=== PATIENT | male | born 1940 | race Caucasian/White ===

== ENCOUNTER 2017-08-09 07:00 | Day surgery (SDC) | payer MEDICARE, BC ==
[~2017-08-09 07:00] MED LIST: Lactated Ringers 1,000 ML IV SCH; Lidocaine 1%/Sod Bicarbonate in NS 8.4% 1 ML Syringe PRN; Sodium Chloride 0.9% 10 ML Syringe FLUSH PRN
[2017-08-09] MEDS ORDERED: fentaNYL 100 MCG/2 ML SDV ONE (07:06)
[2017-08-09] MEDS ORDERED: Propofol 200 MG/20 ML SDV ONE ×2 (07:06→08:23)
--- NOTE | 2017-08-09 07:42 | PCM.PREANE ---
Preanesthetic Assessment - Procedure Proposed Procedure: Surveillance colonoscopy - Anesthesia/Transfusion/Family Hx Anesthesia History: Prior Anesthesia Without Reaction Other Type of Anesthesia Reaction Comment: Difficult to awaken, hx cardiac arrest with CPR 11/21. Pacer implanted after Family History of Anesthesia Reaction: No Transfusion History: No Prior Transfusion(s) - Review of Systems General: No Symptoms Pulmonary: No Symptoms Cardiovascular: Other (HTN, Pacemaker 3-4 years ago ) Gastrointestinal: Other (GERD ) Neurological: No Symptoms Other: Reports: None, Thyroid Problems, Anxiety - Physical Assessment NPO Status Date: 08/08/17 NPO Status Time: 20:30 O2 Sat by Pulse Oximetry: 94 Respiratory Rate: 16 Vital Signs: Last Vital Signs Temp 36.8 C 08/09/17 07:05 Pulse 92 08/09/17 07:05 Resp 16 08/09/17 07:05 BP 132/82 08/09/17 07:05 Pulse Ox 94 L 08/09/17 07:05 Height: 1.55 m Weight: 80.739 kg ASA Class: 3 Mental Status: Alert & Oriented x3 Airway Class: Mallampati = 2 Dentition: Reports: Normal Dentition Thyro-Mental Finger Breadths: 3 Mouth Opening Finger Breadths: 3 ROM/Head Extension: Full Lungs: Clear to Auscultation, Normal Respiratory Effort Cardiovascular: Regular Rate, Regular Rhythm - Allergies Allergies/Adverse Reactions: Allergies Allergy/AdvReac Type Severity Reaction Status Date / Time valsartan Allergy Hives Verified 08/08/17 12:56 - Blood Blood Available: No Product(s) Available: None - Anesthesia Plan Pre-Op Medication Ordered: None - Acknowledgements Anesthesia Type Planned: MAC Pt an Appropriate Candidate for the Planned Anesthesia: Yes Alternatives and Risks of Anesthesia Discussed w Pt/Guardian: Yes Pt/Guardian Understands and Agrees with Anesthesia Plan: Yes PreAnesthesia Questionnaire HEENT History: Reports: Impaired Vision Cardiovascular History: Reports: High Cholesterol, Hypertension, Pacemaker Other Cardiovascular History: Hx of Cardiac arrest with CPR approx 2 minutes, HX of 3rd degree heart block, cardiac cath Respiratory History: Reports: SOB Gastrointestinal History: Reports: Gastritis, GERD, Hiatal Hernia, Other (See Below) Other Gastrointestinal History: esophagitis, colon polyps Genitourinary History: Reports: BPH, Prostate Disorder Other Genitourinary History: BPH, HYDROCELE [employer] History: Reports: None Other Musculoskeletal History: Degenerative joint disease, knee pain Neurological History: Reports: None Psychiatric History: Reports: Anxiety Other Psychiatric History: fatigue Other Endocrine/Metabolic History: thryroidectomy, thyroid nodule Hematologic History: Reports: None Immunologic History: Reports: None Oncologic (Cancer) History: Reports: Basal Cell Carcinoma, Thyroid Other Dermatologic History: basal cell carcinoma with excision - Past Surgical History HEENT Surgical History: Reports: Cataract Surgery, Tonsillectomy Cardiovascular Surgical History: Reports: Other (See Below) Other Cardiovascular Surgeries/Procedures: pacemaker, cardiac catheterization Respiratory Surgical History: Reports: None GI Surgical History: Reports: Colonoscopy, EGD, Hernia Repair/Other Other GI Surgeries/Procedures: UMBILICAL HERNIA REPAIR Endocrine Surgical History: Reports: Thyroidectomy Other Endocrine Surgeries/Procedures: FOR HX OF CA, THYROID NODULE Neurological Surgical History: Reports: None Other Musculoskeletal Surgeries/Procedures:: RIGHT KNEE SCOPE Oncologic Surgical History: Reports: None - SUBSTANCE USE Smoking Status *Q: Former Smoker Second Hand Smoke Exposure: No Days Per Week of Alcohol Use: 0 Recreational Drug Use History: No - HOME MEDS Home Medications: Home Meds Aspirin [Halfprin] 81 mg PO DAILY 11/09/14 [History] Benazepril [Lotensin] 20 mg PO DAILY 11/09/14 [History] Calcium Carbonate 500 mg PO DAILY 11/09/14 [History] Doxazosin [Cardura] 8 mg PO DAILY 11/09/14 [History] Zolpidem [Ambien] 10 mg PO BEDTIME PRN 11/09/14 [History] Saw [place] 160 mg PO DAILY 03/22/15 [History] LORazepam [Ativan] 1 mg PO BEDTIME PRN 10/19/15 [History] Levothyroxine Sodium [Synthroid] 150 mcg PO DAILY 10/19/15 [History] Alum Hydroxide/Mag Hydroxide [Mag-Al Susp] 1 dose PO ASDIRECTED PRN 06/29/16 [ History] Esomeprazole Magnesium [Nexium] 1 tab PO DAILY 06/29/16 [History] Aspirin 81 mg PO DAILY 08/08/17 [History] Finasteride [Finasteride] 5 mg PO DAILY 08/08/17 [History] - CURRENT (IN HOUSE) MEDS Current Meds: Current Medications Lactated Ringer's (Ringers, Lactated) 1,000 mls @ 125 mls/hr IV ASDIRECTED HERMAN Stop: 08/09/17 23:00 Last Admin: 08/09/17 07:20 Dose: 125 mls/hr Lidocaine/Sodium Bicarbonate (Buffered Lidocaine 1% In Ns 8.4%) 0.25 ml .XX ONETIME PRN PRN Reason: Prior to IV Start Stop: 08/09/17 18:00 Last Admin: 08/09/17 07:20 Dose: 0.25 ml Sodium Chloride (Saline Flush) 10 ml FLUSH ASDIRECTED PRN PRN Reason: Keep Vein Open Stop: 08/09/17 18:00 Discontinued Medications Fentanyl (Sublimaze) Confirm Administered Dose 100 mcg .ROUTE .STK-MED ONE Stop: 08/09/17 07:07 Propofol (Diprivan 20 Ml) Confirm Administered Dose 200 mg .ROUTE .STK-MED ONE Stop: 08/09/17 07:07
--- NOTE | 2017-08-09 09:05 | PCM48HPAN ---
Post Anesthesia Note - EVALUATION WITHIN 48HRS OF ANESTHETIC Vital Signs in Normal Range: Yes Patient Participated in Evaluation: Yes Respiratory Function Stable: Yes Airway Patent: Yes Cardiovascular Function Stable: Yes Hydration Status Stable: Yes Pain Control Satisfactory: Yes Nausea and Vomiting Control Satisfactory: Yes Mental Status Recovered: Yes
[2017-08-09 09:10] VITALS: BP 105/72
== END 2017-08-09 10:32 | disposition home or self-care (01) ==
LOC: JD.SDS 07:00
PROVIDERS: ATTEND Surgery
DX: Z12.11 Encounter for screening for malignant neoplasm of colon (principal); K63.5 Polyp of colon; K57.30 Diverticulosis of large intestine without perforation or abscess without bleeding; Z86.010 Personal history of colon polyps; I10 Essential (primary) hypertension; K21.9 Gastro-esophageal reflux disease without esophagitis; F41.9 Anxiety disorder, unspecified; N40.0 Benign prostatic hyperplasia without lower urinary tract symptoms; E78.5 Hyperlipidemia, unspecified; Z88.8 Allergy status to other drugs, medicaments and biological substances; Z95.0 Presence of cardiac pacemaker; Z90.89 Acquired absence of other organs; Z79.82 Long term (current) use of aspirin; Z79.899 Other long term (current) drug therapy; Z87.891 Personal history of nicotine dependence
CPT/HCPCS: 45380; J3010; J7120; 00810; 88305; J2704

== ENCOUNTER → 2021-09-11 | Day surgery (SDC) | payer MEDICARE, BC ==
[~2021-09-11] MED LIST changes: +Acetaminophen/HYDROcodone 325-5 MG Tab PO STA; +EPINEPHrine 1 MG/ML SDV ONE; +HYDROmorphone 0.5 MG/0.5 ML Syringe IVPUSH PRN; +Lactated Ringers 1,000 ML ONE; +Lidocaine 1% 4 ML ONE; +Lidocaine 1%/Sod Bicarbonate in NS 8.4% 1 ML Syringe IDERM PRN; -Lidocaine 1%/Sod Bicarbonate in NS 8.4% 1 ML Syringe PRN; +Morphine 8 MG, EPINEPHrine 0.3 MG, Cefuroxime 750 MG, Ketorolac 30 MG, Sodium Chloride ... PRN; +Ondansetron 4 MG/2 ML SDV IVPUSH PRN; +Ondansetron 4 MG/2 ML SDV ONE; +Propofol 200 MG/20 ML SDV ONE; +Ropivacaine 0.5% 5 MG/ML 30 ML SDV ONE; -Sodium Chloride 0.9% 10 ML Syringe FLUSH PRN; +Sodium Chloride 0.9% 10 ML Syringe FLUSH SCH; +Vancomycin 1 GM SDV ONE; +ceFAZolin 1 GM Vial ONE; +ePHEDrine 50 MG/ML SDV ONE; +fentaNYL 100 MCG/2 ML SDV IVPUSH PRN; +fentaNYL 100 MCG/2 ML SDV ONE
[2021-09-11 19:51] VITALS: BP 122/70; PULSE 89
== END | disposition home or self-care (01) ==
LOC: JD.SDS 11:22
PROVIDERS: ATTEND Orthopaedic Surgery
DX: M17.11 Unilateral primary osteoarthritis, right knee (principal); I10 Essential (primary) hypertension; K21.9 Gastro-esophageal reflux disease without esophagitis; G89.29 Other chronic pain; N40.0 Benign prostatic hyperplasia without lower urinary tract symptoms; E03.9 Hypothyroidism, unspecified; E78.00 Pure hypercholesterolemia, unspecified; Z79.899 Other long term (current) drug therapy; Z88.8 Allergy status to other drugs, medicaments and biological substances; Z98.890 Other specified postprocedural states; Z87.891 Personal history of nicotine dependence
CPT/HCPCS: 27447; 73560; 97110; 97116; 97161; A9270; C1713; C1776; J0171; J0690; J0697; J1885; J2270; J2405; J2704; J2795; J3010; J3370; J7120; 01402; 64450; 76942

== ENCOUNTER 2023-08-03 13:00 | Emergency (ER) | payer MEDICARE, BC ==
[2023-08-03] MEDS ORDERED: LORazepam 2 MG/ML SDV IVPUSH ONE (13:28)
[2023-08-03 13:45] LABS: BASOPHILS ABSOLUTE AUTO 0.1 K/mm3 (0.0-0.2); BASOPHILS PERCENT AUTO 0.8 % (0.0-1.0); EOSINOPHILS ABSOLUTE AUTO 0.2 K/mm3 (0.0-0.4); EOSINOPHILS PERCENT AUTO 2.3 % (0.0-6.0); HEMATOCRIT 41.8 % (42.0-52.0); HEMOGLOBIN 13.9 gm/dl (14.0-18.0); IMMATURE GRAN ABSOLUTE AUTO 0.05 K/mm3 (0.00-0.05); IMMATURE GRAN PERCENT AUTO 0.7 % (0.0-0.4); LYMPHOCYTES ABSOLUTE AUTO 0.9 K/mm3 (1.0-4.8); LYMPHOCYTES PERCENT AUTO 12.5 % (24.0-44.0); MEAN CORPUSCULAR HEMOGLOBIN 29.7 pg (28.0-32.0); MEAN CORPUSCULAR HGB CONC 33.3 g/dl (32.0-36.0); MEAN CORPUSCULAR VOLUME 89.3 fl (83.0-99.0); MEAN PLATELET VOLUME 8.5 fl (9.4-12.4); MONOCYTES ABSOLUTE AUTO 0.6 K/mm3 (0.0-0.8); MONOCYTES PERCENT AUTO 7.5 % (0.0-8.0); NEUTROPHILS ABSOLUTE AUTO 5.7 K/mm3 (1.8-7.7); NEUTROPHILS PERCENT AUTO 76.2 % (41.0-71.0); PLATELET COUNT,PLT 185 K/mm3 (150-400); RED BLOOD CELL COUNT 4.68 M/mm3 (4.52-5.90); WHITE BLOOD CELL COUNT,WBC 7.43 K/mm3 (3.9-11.3)
[2023-08-03 14:09] LABS: A/G RATIO 1.1 (1-2); ALBUMIN 3.8 g/dl (3.4-5.0); BILIRUBIN TOTAL 0.4 mg/dL (0.2-1.0); CALCIUM 8.9 mg/dL (8.5-10.1); CREATININE 1.2 mg/dL (0.7-1.3); EST CRCL DRUG DOSING (CG) 47.31 mL/min; PROTEIN TOTAL,TP 7.4 g/dl (6.4-8.2)
[2023-08-03 15:09] LABS: CORONAVIRUS COVID-19 NAA NEGATIVE (NEGATIVE); INFLUENZA A NAA NEGATIVE (NEGATIVE); RESPIRATORY SYNCYTIAL VIR NAA NEGATIVE (NEGATIVE)
[2023-08-03 16:55] VITALS: BP 112/67; PULSE 85
== END 2023-08-03 16:55 | disposition home or self-care (01) ==
LOC: JD.ED 13:00
DX: F41.9 Anxiety disorder, unspecified (principal); I10 Essential (primary) hypertension; E78.00 Pure hypercholesterolemia, unspecified; K21.9 Gastro-esophageal reflux disease without esophagitis; M19.90 Unspecified osteoarthritis, unspecified site; Z79.82 Long term (current) use of aspirin; Z79.899 Other long term (current) drug therapy; Z95.0 Presence of cardiac pacemaker; Z20.822 Contact with and (suspected) exposure to COVID-19; Z88.8 Allergy status to other drugs, medicaments and biological substances
CPT/HCPCS: 0241U; 36415; 71046; 71046-26; 80053; 83880; 84484; 85025; 93005; 93010; 96374; 99284; 99285-25; J2060

== ENCOUNTER 2024-09-09 22:58 | Emergency (ER) | payer MEDICARE, BC ==
[2024-09-09] MEDS ORDERED: Sodium Chloride 0.9% 10 ML Syringe FLUSH PRN (23:39)
[2024-09-10 00:13] LABS: BASOPHILS ABSOLUTE AUTO 0.1 K/mm3 (0.0-0.2); BASOPHILS PERCENT AUTO 0.7 % (0.0-1.0); EOSINOPHILS ABSOLUTE AUTO 0.3 K/mm3 (0.0-0.4); EOSINOPHILS PERCENT AUTO 3.5 % (0.0-6.0); HEMATOCRIT 37.4 % (42.0-52.0); HEMOGLOBIN 12.6 gm/dl (14.0-18.0); IMMATURE GRAN ABSOLUTE AUTO 0.04 K/mm3 (0.00-0.05); IMMATURE GRAN PERCENT AUTO 0.5 % (0.0-0.4); LYMPHOCYTES ABSOLUTE AUTO 1.1 K/mm3 (1.0-4.8); LYMPHOCYTES PERCENT AUTO 14.2 % (24.0-44.0); MEAN CORPUSCULAR HEMOGLOBIN 31.1 pg (28.0-32.0); MEAN CORPUSCULAR HGB CONC 33.7 g/dl (32.0-36.0); MEAN CORPUSCULAR VOLUME 92.3 fl (83.0-99.0); MEAN PLATELET VOLUME 8.8 fl (9.4-12.4); MONOCYTES ABSOLUTE AUTO 0.7 K/mm3 (0.0-0.8); MONOCYTES PERCENT AUTO 8.8 % (0.0-8.0); NEUTROPHILS ABSOLUTE AUTO 5.4 K/mm3 (1.8-7.7); NEUTROPHILS PERCENT AUTO 72.3 % (41.0-71.0); PLATELET COUNT,PLT 132 K/mm3 (150-400); RED BLOOD CELL COUNT 4.05 M/mm3 (4.52-5.90); WHITE BLOOD CELL COUNT,WBC 7.42 K/mm3 (3.9-11.3)
[2024-09-10 00:15] LABS: CORONAVIRUS COVID-19 NAA NEGATIVE (NEGATIVE); INFLUENZA A NAA NEGATIVE (NEGATIVE); RESPIRATORY SYNCYTIAL VIR NAA NEGATIVE (NEGATIVE)
[2024-09-10 00:42] LABS: ALBUMIN 3.5 g/dl (3.4-5.0); ANION GAP 13.2 (5-15); BILIRUBIN TOTAL 0.4 mg/dL (0.2-1.0); BUN/CREATININE RATIO 17.1 (14-18); CALCIUM 8.7 mg/dL (8.5-10.1); CREATININE 1.4 mg/dL (0.7-1.3); EST CRCL DRUG DOSING (CG) 39.83 mL/min; LACTIC ACID 1.3 mmol/L (0.4-2.0); POTASSIUM,K 4.2 mEq/L (3.5-5.1); PROTEIN TOTAL,TP 6.9 g/dl (6.4-8.2)
[2024-09-10] MEDS: Sodium Chloride 0.9% 500 ML IV ONE (02:10)
[2024-09-10] MEDS: Iopamidol 755 Mg/ML 100 ML Bottle IVPUSH ONE (02:34)
[2024-09-10 04:04] VITALS: BP 146/101; PULSE 72
[2024-09-10] MEDS: Ondansetron 4 MG/2 ML SDV IVPUSH ONE (04:04)
== END 2024-09-10 04:15 | disposition home or self-care (01) ==
LOC: JD.ED 22:58
DX: R05.9 Cough, unspecified (principal); R06.02 Shortness of breath; R79.89 Other specified abnormal findings of blood chemistry; I10 Essential (primary) hypertension; E78.00 Pure hypercholesterolemia, unspecified; K21.9 Gastro-esophageal reflux disease without esophagitis; Z95.0 Presence of cardiac pacemaker; Z79.82 Long term (current) use of aspirin; Z79.899 Other long term (current) drug therapy; Z88.8 Allergy status to other drugs, medicaments and biological substances
CPT/HCPCS: 0241U; 36415; 71045; 71275; 80053; 83605; 83880; 84484; 85025; 85379; 87040; 93005; 96360; 99285; J7030; Q9967